=== PATIENT | female | born 1965 | race Caucasian/White ===

== ENCOUNTER 2017-04-17 17:05 | Inpatient (IN) | payer BC ==
--- NOTE | 2017-04-17 18:16 | RAD ---
INDICATION: Weakness COMPARISON: Chest x-ray May 15, 2013 TECHNIQUE: PA and lateral dual-energy views were obtained. FINDINGS: Bones/Soft Tissues: There is a right-sided Fixbrf-h-Tfpe catheter. There is stable T11 compression deformity Cardiomediastinal: The cardiomediastinal silhouette is normal. Lungs: There is airspace disease in the right lung base consistent with infiltrate or atelectasis. Pleura: Small bilateral pleural effusions. Other: None IMPRESSION: INFILTRATE OR ATELECTASIS RIGHT LUNG BASE AND SMALL BILATERAL EFFUSIONS.
[2017-04-17 18:46] LABS: Hematocrit 37 % (35-47); Hemoglobin 11.9 g/dl (12.0-16.0); Mean Corpuscular HGB Conc 32 g/dl (31-36); Mean Corpuscular Hemoglobin 32 pg (27-31); Mean Corpuscular Volume 100 fL (80-97); Mean Platelet Volume 10 um3 (7.4-10.4); Red Cell Distribution Width 25 % (10.5-15); White Blood Count 10.8 10^3/ul (3.5-10.8)
[2017-04-17 18:57] LABS: Add Diff/Slide Review? Manual Diff Added; Comments Flag Yes
[2017-04-17 19:07] LABS: Troponin I 0.07 ng/mL (<0.04)
[2017-04-17 19:10] LABS: BUN/Creatinine Ratio 18.9 (8-20); C Reactive Protein 60.65 mg/L (< 5.00); EGFR African American 22.3 (>60); EGFR Non-African American 17.3 (>60); Globulin 2.8 g/dL (2-4); Magnesium 2.3 mg/dL (1.9-2.7); Potassium 4.5 mmol/L (3.5-5.0); Total Bilirubin 5.5 mg/dL (0.2-1.0); Total Protein 4.8 g/dL (6.4-8.9)
[2017-04-17 19:51] LABS: TSH (Thyroid Stimulating Horm) 0.87 mcIU/mL (0.34-5.60)
[2017-04-17 19:59] LABS: Neutrophil % 94 % (38-83); RBC Morphology Normal (Normal)
--- NOTE | 2017-04-17 20:38 | RAD ---
INDICATION: Anuric. Stage IV breast cancer COMPARISON: CT chest/abdomen/pelvis January 17, 2017 TECHNIQUE: Noncontrast axial source images were acquired from the level hemidiaphragms to the symphysis pubis. There are inherent limitations of the lack of oral and intravenous contrast. Lung bases: Patchy bibasilar airspace disease with moderate size bilateral pleural effusions representing new findings. There is left mastectomy. Liver: Liver metastasis better identified on recent contrast enhanced imaging. Lobular liver contour with heterogeneity suggesting hepatic parenchymal disease. Gallbladder: Cholelithiasis. Spleen: The spleen is normal in size. The noncontrast CT appearance is normal. Pancreas: Noncontrast imaging shows no pancreatic mass or ductal dilitation. Adrenal glands: No masses are identified. Kidneys/Bladder: Nonobstructive bilateral nephrolithiasis. No CT evidence of hydronephrosis. Noncontrast imaging shows no evidence of a renal mass. The bladder is unremarkable.. Adenopathy: No gross adenopathy. Limited evaluation without oral or intravenous contrast. Fluid collections: Moderate ascites representing a new finding. Vessels: The aorta and iliac vessels are normal in caliber. There are no significant atherosclerotic changes. The IVC appears normal Pelvic organs: The uterus and adnexa appear normal GI tract: Evaluation of the bowel is limited without oral contrast. The stomach, small bowel, and lower GI tract appear grossly normal. There are no obstructive findings. Soft tissues: Anasarca. Osseous structures: Fuse osseous metastasis as recently described. IMPRESSION: 1. New patchy bibasilar airspace disease and moderate-sized bilateral pleural effusions. 2. Lobular liver contours with hepatic metastasis. 3. Cholelithiasis 4. New ascites. 5. Anasarca 6. Diffuse osseous metastasis.
[2017-04-17] MEDS ORDERED: Acetaminophen TAB* 325 MG PO PRN (22:19)
[2017-04-17] MEDS ORDERED: LORazepam INJ* 2 MG/ML 1 ML VIAL IV PRN (22:20)
[2017-04-17] MEDS ORDERED: CMCS: Melatonin (NF) 3 MG TAB PO PRN (22:34)
[2017-04-17] MEDS ORDERED: Albumin Human 5%* 250 ML in PREMIX* 0 ML IV ONE (23:00)
[2017-04-17] MEDS ORDERED: Albumin Human 5%* 1,000 ML in PREMIX* 0 ML IV ONE ×4 (23:00)
[2017-04-17 23:11] LABS: Uric Acid 12.1 mg/dL (2.3-6.6)
--- NOTE | 2017-04-18 00:04 | HP ---
H&P (Free Text) History and Physical: PCP: Justice Buckner MD Date/Time of Evaluation: 04/17/2017 2130 CC: fatigue, decreased urination HPI: Mrs Pretty is a 52YO female HX inflammatory breast CA diagnosed in 2012 for which she reports being on 4th or 5th line therapy for widely metastatic lesions to the liver, bones, & brain. 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 Starting ~3 weeks ago she began having progressive generalized weakness and fatigue associated with new onset of generalized swelling. This progressed to include decreasing urination over the past week. She relates the last time she urinated was this morning, but only "about a tablespoon". She denies SOB, chest pain, F/C, cough, congestion, changes in bowel, B/U/F of urine, flank or abdominal pain, or other issues. She reports gaining ~25# over the last 3 weeks despite having decreased PO intake. She feels she has been drinking adequate fluids. She is not currently on cytotoxic chemotherapy, rather the growth inhibitors letrozole & ribociclib. Overall her picture appears to be that of hepato-renal syndrome. It is most likely the tumor burden in the liver has caused its decompensation with resulting decreased synthetic ability, hypoalbuminemia, decreased intravascular oncotic pressure leading to anasarca, intravascular volume depletion and 2nd renal hypoperfusion and failure. Kale Méndez MD nephrology was consulted by Kale Lui MD ED and will follow. I discussed the case with Clarissa Lipscomb MD intesivist who agreed with the plan of action outlined below. All agree that prognosis is very poor over the short term. PMedHx inflammatory breast CA stg 4 as above currently on ribociclib & letrozole DM2 HTN HLD MTHFR mutation positive, hypercoagulable legally blind OU Ambulatory Orders metFORMIN* [Glucophage 500 MG TAB *] 500 mg PO BID 07/19/14 Calcium Carbonate TAB* 500 mg PO DAILY 03/01/16 Capecitabine (NF) [Xeloda (NF)] 1,500 mg PO TID 03/01/16 Cholecalciferol TAB* [Vitamin D TAB*] 1,000 unit PO DAILY 03/01/16 Fluconazole 100 MG TAB* [Diflucan TAB*] 150 mg PO DAILY 03/01/16 Metoprolol Tartrate TAB* [Lopressor TAB*] 12.5 mg PO BID 03/01/16 Pyridoxine HCl [Vitamin B-6] 100 mg PO 03/01/16 Pravastatin Sodium [Pravachol] 20 mg PO DAILY 05/26/16 Allergies Penicillins [PCN] Adverse Reaction (Severe, Verified 01/17/17 11:59) Rash PSurgHx L mastectomy appendectomy SocHx: no tobacco, alcohol, or recreational drugs; lives with her ; 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 ROS: as above, otherwise reviewed and all were negative Constitutional: NAD, normally developed, anasarcous, chronically ill appearing white female vitals: Vital Signs Temp 37.1 C 04/17/17 23:19 Pulse 98 04/17/17 23:00 Resp 16 04/17/17 18:09 BP 95/60 04/17/17 23:00 Pulse Ox 96 04/17/17 23:00 Intake & Output 04/17/17 04/17/17 04/18/17 11:59 23:59 11:59 Weight 78.018 kg HEENM: atraumatic; sclera/conjunctiva: non-icteric/clear; hearing: clinically intact; oropharynx: clear, mucosa moist Neck: soft tissue: no nuchal rigidity; thyroid: normal Pulmonary: clear to auscultation bilaterally, good to fair aeration, no accessory muscle use CV: RR/RR, normal S1S2, no carotid bruit, no jugular venous distention, 2+ B DP/ PT, no edema Abdominal: soft,mildly distended with fluid thrill, non-tender, no rebound/ guarding/rigidity, normoactive bowel sounds, no hepatosplenomegaly or masses, no costovertebral angle tenderness Musculoskeletal: general: grossly intact; gait: too weak to ambulate Integumental: pale, L mastectomy; otherwise normal appearance and texture of exposed skin Psychiatric orientation: AA&O to PPS affect: calm mood: pleasant eye contact: good content: reliable memory: intact responses: timely insight: fair to good Testing: Lab Results 04/17/17 04/17/17 04/17/17 Range/Units 18:35 18:35 18:35 WBC 10.8 (3.5-10.8) 10^3/ul RBC 3.70 L (4.0-5.4) 10^6/ul Hgb 11.9 L (12.0-16.0) g/dl Hct 37 (35-47) % MCV 100 H (80-97) fL MCH 32 H (27-31) pg MCHC 32 (31-36) g/dl RDW 25 H (10.5-15) % Plt Count 228 (150-450) 10^3/ul MPV 10 (7.4-10.4) um3 Absolute Neuts (auto) 10.1 H (1.5-7.7) 10^3/ul Absolute Lymphs (auto) 0.3 L (1.0-4.8) 10^3/ul Absolute Monos (auto) 0.3 (0-0.8) 10^3/ul Absolute Eos (auto) 0 (0-0.6) 10^3/ul Absolute Basos (auto) 0 (0-0.2) 10^3/ul Absolute Nucleated RBC 0 10^3/ul Neutrophils % 94 H (38-83) % Lymphocytes % 3 L (25-47) % Monocytes % 3 (0-13) % Normal RBC Morphology Normal (Normal) Sodium 130 L (133-145) mmol/L Potassium 4.5 (3.5-5.0) mmol/L Chloride 92 L (101-111) mmol/L Carbon Dioxide 19 L (22-32) mmol/L Anion Gap 19 H (2-11) mmol/L BUN 54 H (6-24) mg/dL Creatinine 2.86 H (0.51-0.95) mg/dL Est GFR ( Amer) 22.3 (>60) Est GFR (Non-Af Amer) 17.3 (>60) BUN/Creatinine Ratio 18.9 (8-20) Glucose 142 H (70-100) mg/dL Lactic Acid 10.2 H* (0.5-2.0) mmol/L Uric Acid 12.1 H (2.3-6.6) mg/dL Calcium 7.0 L (8.6-10.3) mg/dL Ionized Calcium (4.65-5.28) mg/dL Magnesium 2.3 (1.9-2.7) mg/dL Total Bilirubin 5.50 H (0.2-1.0) mg/dL AST 215 H (13-39) U/L ALT 64 H (7-52) U/L Alkaline Phosphatase 1107 H (34-104) U/L Lactate Dehydrogenase 389 H (140-271) U/L Total Creatine Kinase 627 H (10-223) U/L Troponin I 0.07 H* (<0.04) ng/mL C-Reactive Protein 60.65 H (< 5.00) mg/L B-Natriuretic Peptide ( - 100) pg/mL Total Protein 4.8 L (6.4-8.9) g/dL Albumin 2.0 L (3.2-5.2) g/dL Globulin 2.8 (2-4) g/dL Albumin/Globulin Ratio 0.7 L (1-3) TSH 0.87 (0.34-5.60) mcIU/mL 04/17/17 04/17/17 Range/Units 18:35 21:30 WBC (3.5-10.8) 10^3/ul RBC (4.0-5.4) 10^6/ul Hgb (12.0-16.0) g/dl Hct (35-47) % MCV (80-97) fL MCH (27-31) pg MCHC (31-36) g/dl RDW (10.5-15) % Plt Count (150-450) 10^3/ul MPV (7.4-10.4) um3 Absolute Neuts (auto) (1.5-7.7) 10^3/ul Absolute Lymphs (auto) (1.0-4.8) 10^3/ul Absolute Monos (auto) (0-0.8) 10^3/ul Absolute Eos (auto) (0-0.6) 10^3/ul Absolute Basos (auto) (0-0.2) 10^3/ul Absolute Nucleated RBC 10^3/ul Neutrophils % (38-83) % Lymphocytes % (25-47) % Monocytes % (0-13) % Normal RBC Morphology (Normal) Sodium (133-145) mmol/L Potassium (3.5-5.0) mmol/L Chloride (101-111) mmol/L Carbon Dioxide (22-32) mmol/L Anion Gap (2-11) mmol/L BUN (6-24) mg/dL Creatinine (0.51-0.95) mg/dL Est GFR ( Amer) (>60) Est GFR (Non-Af Amer) (>60) BUN/Creatinine Ratio (8-20) Glucose (70-100) mg/dL Lactic Acid (0.5-2.0) mmol/L Uric Acid (2.3-6.6) mg/dL Calcium (8.6-10.3) mg/dL Ionized Calcium 3.42 L (4.65-5.28) mg/dL Magnesium (1.9-2.7) mg/dL Total Bilirubin (0.2-1.0) mg/dL AST (13-39) U/L ALT (7-52) U/L Alkaline Phosphatase (34-104) U/L Lactate Dehydrogenase (140-271) U/L Total Creatine Kinase (10-223) U/L Troponin I (<0.04) ng/mL C-Reactive Protein (< 5.00) mg/L B-Natriuretic Peptide 119 H ( - 100) pg/mL Total Protein (6.4-8.9) g/dL Albumin (3.2-5.2) g/dL Globulin (2-4) g/dL Albumin/Globulin Ratio (1-3) TSH (0.34-5.60) mcIU/mL ECG, personally reviewed: NSR rate 94, no ischemia CXR, personally reviewed: IMPRESSION: INFILTRATE OR ATELECTASIS RIGHT LUNG BASE AND SMALL BILATERAL EFFUSIONS. CT chest/abd/pel WO, personally reviewed: IMPRESSION: 1. New patchy bibasilar airspace disease and moderate-sized bilateral pleural effusions. 2. Lobular liver contours with hepatic metastasis. 3. Cholelithiasis 4. New ascites. 5. Anasarca 6. Diffuse osseous metastasis. Impression: 52F HX stg 4 inflammatory breast CA widely metastatic to liver, bone , & brain presents with 3 weeks progressive generalized weakness, generalized swelling, and acute oliguric (nearly anuric) renal failure concerning for new onset hepato-renal syndrome, less likely tumor lysis syndrome DIAGNOSIS & PLAN Primary hepato-renal syndrome : 1L 5% albumin colloid attempting to shift oncotic pressure favoring intravascular volume : trend renal & hepatic function : consider furosemide infusion in AM, if no improvement in urine output : check INR : Kale Méndez MD nephrology consulted by Kale Lui MD ED; will follow : case discussed with Clarissa Lipscomb MD environmental engineering intern; will follow : Patient & family informed of very poor short-term prognosis. : supportive care Secondary DM2 : insulin carb ratio diet : basal/bolus/correctional insulin : check A1c HTN : review medications once reconciled HLD : review medications once reconciled MTHFR mutation positive, hypercoagulable : heparin SQ & SCDs for DVTp legally blind OU : no acute issues Admission Rational: inpatient ICU for acute hepato-renal syndrome in patient at high risk of mortality; inappropriate for outpatient setting DVTp: heparin SQ & SCDs Code Status: DNI, MOLST filled out HCP: , Lucila
[2017-04-18 01:29] LABS: Phosphorus 5.2 mg/dL (2.5-5.0)
[2017-04-18] MEDS: Omeprazole CAP* 20 MG PO SCH (05:58)
[2017-04-18] MEDS: Heparin VIAL(*) 5000 UNITS/ML VIAL (FIVE THOUSAND) SUBCUT SCH ×3 (05:58→20:55)
[2017-04-18 06:07] LABS: Hematocrit 28 % (35-47); Hemoglobin 9.3 g/dl (12.0-16.0); Mean Corpuscular HGB Conc 33 g/dl (31-36); Mean Corpuscular Hemoglobin 33 pg (27-31); Mean Corpuscular Volume 99 fL (80-97); Mean Platelet Volume 9 um3 (7.4-10.4); Red Blood Count 2.83 10^6/ul (4.0-5.4); White Blood Count 7.3 10^3/ul (3.5-10.8)
[2017-04-18 06:09] LABS: Comments Flag Yes
[2017-04-18 06:11] LABS: Red Cell Distribution Width 25 % (10.5-15)
[2017-04-18 06:24] LABS: Albumin 2.8 g/dL (3.2-5.2); BUN/Creatinine Ratio 18.5 (8-20); Calcium 6.7 mg/dL (8.6-10.3); Direct Bilirubin 3.3 mg/dL (0.03-0.18); EGFR African American 21.3 (>60); EGFR Non-African American 16.6 (>60); Globulin 1.8 g/dL (2-4); Indirect Bilirubin 1.6 mg/dL (0.3-1.0); Potassium 4.4 mmol/L (3.5-5.0); Total Bilirubin 4.9 mg/dL (0.2-1.0); Total Protein 4.6 g/dL (6.4-8.9)
[2017-04-18 06:52] LABS: Troponin I 0.08 ng/mL (<0.04)
[2017-04-18] MEDS: Insulin LISPRO* 1 UNITS UNIT SUBCUT SCH ×3 (07:55→08:58)
[2017-04-18 08:36] LABS: Urine Bacteria Absent (Absent); Urine Bilirubin Negative (Negative); Urine Glucose Negative (Negative); Urine Nitrite Negative (Negative)
[2017-04-18] MEDS: Docusate CAP* 100 MG PO SCH ×2 (09:03→21:21)
[2017-04-18 10:12] LABS: Phosphorus 4.4 mg/dL (2.5-5.0); Uric Acid 11.9 mg/dL (2.3-6.6)
[2017-04-18] MEDS: HYDROmorphone* 1 MG/ML 1 ML SYR IV PRN (10:12)
[2017-04-18] MEDS ORDERED: Rasburicase 1.5 MG VIAL(NF) IVPB ONE (11:00)
[2017-04-18] MEDS ORDERED: RASBURICASE IVPB ONE (12:00)
[2017-04-18] MEDS ORDERED: NS 0.9% IVPB ONE (12:00)
[2017-04-18] MEDS: Albumin Human 25%* 100 ML in PREMIX* 0 ML IV SCH ×3 (12:23→23:53)
--- NOTE | 2017-04-18 12:23 | PN ---
Progress Note - Progress Note Note: CRITICAL CARE MEDICINE Date: 04/18/17 Time: 1015 SUBJECTIVE: Patient seen and examined. PHYSICAL EXAM: fatigue, but not distressed Vital Signs: Reviewed. Neurologic: awake, communicating HEENT: pupils equal. Sclera anicteric. Trachea midline. Cardiovascular: S1 S2 Respiratory: dec at bases. Abdomen: Soft, discomfort more R sided, +fluid, anasarca Extremities: Warm. 3+ edema LABS: Reviewed. IMAGING: Reviewed. MEDICATIONS: Reviewed. ASSESSMENT: 52 F MSOF Acute oliguric renal failure - HRS vs TLS Mild metabolic encephalopathy, +/- hepatic encephalopathy Widely metastatic stage IV breast CA Lactic acidosis sec to subacute liver failure Hyponatremia Malnutrition mod degree Anasacra PLAN: Neurologic: communicating. we discussed potentials and mechanisms for worsening encephalopathy. check ammonia level. pain control prn Cardiovascular: Perfusing status seems ok. Intravscular vol holding mostly but interstitial fluid overloaded without mobilization. Colloid loading still today and consider high dose lasix and gtt soon. We discussed and I advocated for early use of vasopressors if indicated, which they are not presently. Respiratory: RA. seems to be adequately compensated for now. We discussed mechanisms leading towards resp failure. Gastrointestinal: poor appetite but take in what she can. invasive hepatic lesions. at risk for dic. Renal/Metabolic: as explained to pt, we will remain aggressive with fluid balance and utilize rasburicase in hopes this is just a large tumor abundance causing tls and acute tubular insult with potential reversibility. Explained if more HRS, then less likely to be reversibility. Infectious Disease: no infective burden seen, but at risk. Hematology: oncology followed in [facility] and had refer to [facility] but to no avail and headed towards palliative tract. rasburicase to be given and then allopurinal f/u and check Uric addison. Endocrine: no steroid indication at this time. hold lantus given renal dysfx Musculoskeletal: rest today; avoid skin breakdown Psych/Social: at bedside with pt and they expressed understanding. Offered palliative support and they will consider Supportive and preventative care as ordered. SUP: po VTE prophylaxis: heparin Phelan catheter given critical illness, monitoring needs for accurate assessment of JEANE and KDIGO criteria for critically ill patients and to avoid potential harms of urinary retention, skin breakdown/ulcers. Disposition: ICU today Code Status: Full Critical Care Time: 38min Sherin Lipscomb DO
[2017-04-18] MEDS ORDERED: Magic M W2 Ben/Maal/Nyst/Lido* 240 ML MOUTHWASH (alt formulation) SWISH SWAL PRN (13:48)
[2017-04-18] MEDS ORDERED: oxyCODONE TAB* 5 MG TAB PO PRN (13:50)
[2017-04-18] MEDS: NS 0.9% 1000 ML* 2,000 ML IV ONE ×2 (14:35→20:27)
[2017-04-18] MEDS ORDERED: Insulin GLARGINE(*) 1 UNITS UNIT SUBCUT SCH (21:00)
[2017-04-19] MEDS: Omeprazole CAP* 20 MG PO SCH ×2 (06:23→17:09)
[2017-04-19] MEDS: Heparin VIAL(*) 5000 UNITS/ML VIAL (FIVE THOUSAND) SUBCUT SCH ×3 (06:23→21:19)
[2017-04-19] MEDS: Albumin Human 25%* 100 ML in PREMIX* 0 ML IV SCH (06:24)
[2017-04-19 06:54] LABS: Hematocrit 25 % (35-47); Hemoglobin 8.3 g/dl (12.0-16.0); Mean Corpuscular HGB Conc 33 g/dl (31-36); Mean Corpuscular Hemoglobin 32 pg (27-31); Mean Corpuscular Volume 99 fL (80-97); Mean Platelet Volume 9 um3 (7.4-10.4); Red Blood Count 2.56 10^6/ul (4.0-5.4); Red Cell Distribution Width 25 % (10.5-15); White Blood Count 5.2 10^3/ul (3.5-10.8)
[2017-04-19 06:55] LABS: Comments Flag Yes
[2017-04-19 07:06] LABS: ALT 34 U/L (7-52); AST 136 U/L (13-39); Albumin 3.1 g/dL (3.2-5.2); Alkaline Phosphatase 570 U/L (34-104); Anion Gap 10 mmol/L (2-11); Blood Urea Nitrogen 60 mg/dL (6-24); CO2 Carbon Dioxide 25 mmol/L (22-32); Calcium 6.7 mg/dL (8.6-10.3); Chloride 97 mmol/L (101-111); EGFR African American 19.9 (>60); EGFR Non-African American 15.5 (>60); Globulin 1.6 g/dL (2-4); Glucose 77 mg/dL (70-100); Magnesium 2.2 mg/dL (1.9-2.7); Phosphorus 3.5 mg/dL (2.5-5.0); Sodium 132 mmol/L (133-145); Total Protein 4.7 g/dL (6.4-8.9); Uric Acid < 1.5 mg/dL (2.3-6.6)
[2017-04-19] MEDS: Docusate CAP* 100 MG PO SCH ×2 (08:28→21:19)
[2017-04-19] MEDS: HYDROmorphone* 1 MG/ML 1 ML SYR IV PRN (08:47)
--- NOTE | 2017-04-19 09:27 | ED ---
Jose L Escoto Alok, scribed for iMhai Lui MD on 04/17/17 at 1806 . Complex/Multi-Sys Presentation - HPI Summary HPI Summary: 52F presents to the ED for increased fatigue. Pt states that her appetite has been low lately, and today had several episodes of falling asleep while trying to eat. PMHx includes breast CA that has spread to bone, liver, and brain, as well as DM. Pt notes recent change in chemotherapy related medication to Kisqali as well as the introduction of a new water pill for the past few days. Pt states she was previously on Lasix two weeks ago for one week until discontinuing. Pt states her last radiation treatment was 6 months ago. Pt takes metformin for DM. Pt also c/o a rhvc-ortthh-tguy cough. Pt states she has been urinating little. Pt states her BM have been normal. Pt also notes pedal edema bilaterally and progressively worsening for the past 2-3 weeks. - History Of Current Complaint Time Seen by Provider: 04/17/17 17:30 Hx Obtained From: Patient Onset/Duration: Gradual Onset, Lasting Days, Still Present Timing: Constant Severity Currently: Moderate Severity Initially: Moderate Associated Signs And Symptoms: Positive: Other - Fatigue, low urination, pedal edema - Allergies/Home Medications Allergies/Adverse Reactions: Allergies Allergy/AdvReac Type Severity Reaction Status Date / Time Penicillins [PCN] AdvReac Severe Rash Verified 01/17/17 11:59 PMH/Surg Hx/FS Hx/Imm Hx Endocrine/Hematology History: Reports: Hx Diabetes - Metformin - type 2 Denies: Hx Systemic Lupus Erythematosus Cardiovascular History: Denies: Hx Hypertension, Hx Pacemaker/ICD Respiratory History: Denies: Hx Asthma History: Denies: Hx Dialysis, Hx Renal Disease Musculoskeletal History: Denies: Hx Rheumatoid Arthritis Sensory History: Denies: Hx Hearing Aid Neurological History: Comment Only: Other Neuro Impairments/Disorders - BREAST CANCER DX LAST YR Psychiatric History: Denies: Hx Panic Disorder - Cancer History Cancer Type, Location and Year: BREAST/BRAIN Hx Chemotherapy: Yes - PRESENT TIME Hx Radiation Therapy: Yes - 05/05/15 - Surgical History Surgery Procedure, Year, and Place: Left radical mastectomy August2013. appendectomy 1984,[facility] knife 07/04[place] Infectious Disease History: Denies: Traveled Outside the [place] in Last 30 Days - Family History Known Family History: Negative: Cardiac Disease, Hypertension, Diabetes - Social History Occupation: Employed Full-time Lives: With Family Alcohol Use: Rare Substance Use Type: Reports: None Smoking Status (MU): Never Smoked Tobacco Review of Systems Positive: Fatigue. Negative: Fever Positive: Cough Positive: other - low urination Positive: Edema All Other Systems Reviewed And Are Negative: Yes Physical Exam Triage Information Reviewed: Yes Vital Signs On Initial Exam: Initial Vital Signs Temp 99.0 F 04/17/17 18:09 Pulse 98 04/17/17 18:09 Resp 16 04/17/17 18:09 BP 92/51 04/17/17 18:09 Pulse Ox 96 04/17/17 18:09 Vital Signs Reviewed: Yes Appearance: Positive: Well-Appearing, No Pain Distress Skin: Positive: Other - slight icterus Head/Face: Positive: Normal Head/Face Inspection Eyes: Positive: Other: - pupils 1-2 mm ENT: Positive: Normal ENT inspection Neck: Positive: Supple, Nontender Respiratory/Lung Sounds: Positive: Clear to Auscultation, Breath Sounds Present Cardiovascular: Positive: RRR Abdomen Description: Positive: Nontender, Soft Bowel Sounds: Positive: Present Musculoskeletal: Positive: Other - 3+ pitting edema both legs Neurological: Positive: Normal Psychiatric: Positive: Normal, Affect/Mood Appropriate Diagnostics - Vital Signs Vital Signs Temp Pulse Resp BP Pulse Ox 04/17/17 21:30 96 97/63 96 04/17/17 21:00 95 95/53 95 04/17/17 20:30 97 93/59 96 04/17/17 20:00 97 96/51 96 04/17/17 19:30 95 95/57 95 04/17/17 19:00 97 89/59 99 04/17/17 18:15 97 96 04/17/17 18:13 92/51 04/17/17 18:09 99.0 F 98 16 92/51 96 - Laboratory Lab Results: Lab Results 04/17/17 04/17/17 04/17/17 Range/Units 18:35 18:35 18:35 WBC 10.8 (3.5-10.8) 10^3/ul RBC 3.70 L (4.0-5.4) 10^6/ul Hgb 11.9 L (12.0-16.0) g/dl Hct 37 (35-47) % MCV 100 H (80-97) fL MCH 32 H (27-31) pg MCHC 32 (31-36) g/dl RDW 25 H (10.5-15) % Plt Count 228 (150-450) 10^3/ul MPV 10 (7.4-10.4) um3 Absolute Neuts (auto) 10.1 H (1.5-7.7) 10^3/ul Absolute Lymphs (auto) 0.3 L (1.0-4.8) 10^3/ul Absolute Monos (auto) 0.3 (0-0.8) 10^3/ul Absolute Eos (auto) 0 (0-0.6) 10^3/ul Absolute Basos (auto) 0 (0-0.2) 10^3/ul Absolute Nucleated RBC 0 10^3/ul Neutrophils % 94 H (38-83) % Lymphocytes % 3 L (25-47) % Monocytes % 3 (0-13) % Normal RBC Morphology Normal (Normal) INR (Anticoag Therapy) (0.89-1.11) Sodium 130 L (133-145) mmol/L Potassium 4.5 (3.5-5.0) mmol/L Chloride 92 L (101-111) mmol/L Carbon Dioxide 19 L (22-32) mmol/L Anion Gap 19 H (2-11) mmol/L BUN 54 H (6-24) mg/dL Creatinine 2.86 H (0.51-0.95) mg/dL Est GFR ( Amer) 22.3 (>60) Est GFR (Non-Af Amer) 17.3 (>60) BUN/Creatinine Ratio 18.9 (8-20) Glucose 142 H (70-100) mg/dL Hemoglobin A1c (Less than 6.0) % Lactic Acid 10.2 H* (0.5-2.0) mmol/L Uric Acid 12.1 H (2.3-6.6) mg/dL Calcium 7.0 L (8.6-10.3) mg/dL Ionized Calcium (4.65-5.28) mg/dL Phosphorus 5.2 H (2.5-5.0) mg/dL Magnesium 2.3 (1.9-2.7) mg/dL Total Bilirubin 5.50 H (0.2-1.0) mg/dL AST 215 H (13-39) U/L ALT 64 H (7-52) U/L Alkaline Phosphatase 1107 H (34-104) U/L Lactate Dehydrogenase 389 H (140-271) U/L Total Creatine Kinase 627 H (10-223) U/L Troponin I 0.07 H* (<0.04) ng/mL C-Reactive Protein 60.65 H (< 5.00) mg/L B-Natriuretic Peptide ( - 100) pg/mL Total Protein 4.8 L (6.4-8.9) g/dL Albumin 2.0 L (3.2-5.2) g/dL Globulin 2.8 (2-4) g/dL Albumin/Globulin Ratio 0.7 L (1-3) TSH 0.87 (0.34-5.60) mcIU/mL 04/17/17 04/17/17 04/17/17 Range/Units 18:35 18:35 18:35 WBC (3.5-10.8) 10^3/ul RBC (4.0-5.4) 10^6/ul Hgb (12.0-16.0) g/dl Hct (35-47) % MCV (80-97) fL MCH (27-31) pg MCHC (31-36) g/dl RDW (10.5-15) % Plt Count (150-450) 10^3/ul MPV (7.4-10.4) um3 Absolute Neuts (auto) (1.5-7.7) 10^3/ul Absolute Lymphs (auto) (1.0-4.8) 10^3/ul Absolute Monos (auto) (0-0.8) 10^3/ul Absolute Eos (auto) (0-0.6) 10^3/ul Absolute Basos (auto) (0-0.2) 10^3/ul Absolute Nucleated RBC 10^3/ul Neutrophils % (38-83) % Lymphocytes % (25-47) % Monocytes % (0-13) % Normal RBC Morphology (Normal) INR (Anticoag Therapy) 1.37 H (0.89-1.11) Sodium (133-145) mmol/L Potassium (3.5-5.0) mmol/L Chloride (101-111) mmol/L Carbon Dioxide (22-32) mmol/L Anion Gap (2-11) mmol/L BUN (6-24) mg/dL Creatinine (0.51-0.95) mg/dL Est GFR ( Amer) (>60) Est GFR (Non-Af Amer) (>60) BUN/Creatinine Ratio (8-20) Glucose (70-100) mg/dL Hemoglobin A1c 6.3 H (Less than 6.0) % Lactic Acid (0.5-2.0) mmol/L Uric Acid (2.3-6.6) mg/dL Calcium (8.6-10.3) mg/dL Ionized Calcium (4.65-5.28) mg/dL Phosphorus (2.5-5.0) mg/dL Magnesium (1.9-2.7) mg/dL Total Bilirubin (0.2-1.0) mg/dL AST (13-39) U/L ALT (7-52) U/L Alkaline Phosphatase (34-104) U/L Lactate Dehydrogenase (140-271) U/L Total Creatine Kinase (10-223) U/L Troponin I (<0.04) ng/mL C-Reactive Protein (< 5.00) mg/L B-Natriuretic Peptide 119 H ( - 100) pg/mL Total Protein (6.4-8.9) g/dL Albumin (3.2-5.2) g/dL Globulin (2-4) g/dL Albumin/Globulin Ratio (1-3) TSH (0.34-5.60) mcIU/mL 04/17/ Range/Units 21:30 WBC (3.5-10.8) 10^3/ul RBC (4.0-5.4) 10^6/ul Hgb (12.0-16.0) g/dl Hct (35-47) % MCV (80-97) fL MCH (27-31) pg MCHC (31-36) g/dl RDW (10.5-15) % Plt Count (150-450) 10^3/ul MPV (7.4-10.4) um3 Absolute Neuts (auto) (1.5-7.7) 10^3/ul Absolute Lymphs (auto) (1.0-4.8) 10^3/ul Absolute Monos (auto) (0-0.8) 10^3/ul Absolute Eos (auto) (0-0.6) 10^3/ul Absolute Basos (auto) (0-0.2) 10^3/ul Absolute Nucleated RBC 10^3/ul Neutrophils % (38-83) % Lymphocytes % (25-47) % Monocytes % (0-13) % Normal RBC Morphology (Normal) INR (Anticoag Therapy) (0.89-1.11) Sodium (133-145) mmol/L Potassium (3.5-5.0) mmol/L Chloride (101-111) mmol/L Carbon Dioxide (22-32) mmol/L Anion Gap (2-11) mmol/L BUN (6-24) mg/dL Creatinine (0.51-0.95) mg/dL Est GFR ( Amer) (>60) Est GFR (Non-Af Amer) (>60) BUN/Creatinine Ratio (8-20) Glucose (70-100) mg/dL Hemoglobin A1c (Less than 6.0) % Lactic Acid (0.5-2.0) mmol/L Uric Acid (2.3-6.6) mg/dL Calcium (8.6-10.3) mg/dL Ionized Calcium 3.42 L (4.65-5.28) mg/dL Phosphorus (2.5-5.0) mg/dL Magnesium (1.9-2.7) mg/dL Total Bilirubin (0.2-1.0) mg/dL AST (13-39) U/L ALT (7-52) U/L Alkaline Phosphatase (34-104) U/L Lactate Dehydrogenase (140-271) U/L Total Creatine Kinase (10-223) U/L Troponin I (<0.04) ng/mL C-Reactive Protein (< 5.00) mg/L B-Natriuretic Peptide ( - 100) pg/mL Total Protein (6.4-8.9) g/dL Albumin (3.2-5.2) g/dL Globulin (2-4) g/dL Albumin/Globulin Ratio (1-3) TSH (0.34-5.60) mcIU/mL Result Diagrams: 04/19/17 06:14 04/19/17 06:14 Lab Statement: Any lab studies that have been ordered have been reviewed, and results considered in the medical decision making process. - Radiology CXR Xray Interpretation: Positive (See Comments) - IMPRESSION: INFILTRATE OR ATELECTASIS RIGHT LUNG BASE AND SMALL BILATERAL EFFUSIONS. Radiology Interpretation Completed By: Radiologist - CT abd/pel CT CT Interpretation: Positive (See Comments) - IMPRESSION: 1. New patchy bibasilar airspace disease and moderate-sized bilateral pleural effusions. 2. Lobular liver contours with hepatic metastasis. 3. Cholelithiasis 4. New ascites. 5. Anasarca 6. Diffuse osseous metastasis. CT Interpretation Completed By: Radiologist - EKG 2048 Cardiac Rate: NL - 94 bpm EKG Rhythm: Sinus Rhythm Complex Multi-Symp Course/Dx Course Of Treatment: Ms. Pretty arrived very weak and very ill. She is developing renal failure and has a marked lactic acid elevation. Dr. Méndez was contacted and agreed to consult on her and Dr. Castillo will admit her. - Diagnoses Provider Diagnoses: Metabolic acidosis, Acute renal failure (ARF) - Physician Notifications Discussed Care Of Patient With: Garret Castillo - Will admit pt Time Discussed With Above Provider: 21:33 - Critical Care Time Critical Care Time: 30-74 min Discharge - Discharge Plan Condition: Stable Disposition: ADMITTED TO [facility] documentation as recorded by the Jose L bhatti Alok accurately reflects the service I personally performed and the decisions made by me, Mihai Lui MD.
[2017-04-19] MEDS: Ondansetron INJ* 2 MG/ML VIAL IV PRN (09:53)
[2017-04-19] MEDS ORDERED: Furosemide IV* 10 MG/ML 10 ML VIAL (100 MG) IV ONE (10:17)
[2017-04-19] MEDS: CMC: Midodrine (NF) 5 MG TAB PO SCH ×3 (10:33→21:23)
--- NOTE | 2017-04-19 12:12 | PN ---
Progress Note - Progress Note Note: CRITICAL CARE MEDICINE Date: 04/19/17 Time: 1130 SUBJECTIVE: Patient seen and examined. PHYSICAL EXAM: fatigue Vital Signs: Reviewed. Neurologic: awake, communicating HEENT: pupils equal. Sclera icteric. Trachea midline. Cardiovascular: S1 S2 Respiratory: dec at bases. Abdomen: Soft, discomfort similar, +fluid, anasarca Extremities: Cooler. 3+ edema LABS: Reviewed. IMAGING: Reviewed. MEDICATIONS: Reviewed. ASSESSMENT: 52 F MSOF Acute oliguric renal failure - HRS vs TLS Mild metabolic encephalopathy, + hepatic encephalopathy Widely metastatic stage IV breast CA Lactic acidosis sec to subacute liver failure Hyponatremia Malnutrition mod degree Anasacra PLAN: Neurologic: communicating. encephalopathy. check ammonia level. pain control prn Cardiovascular: Perfusing ok but add midodrine to maintain. Don't want to get into using levo if we can avoid. Intravscular vol holding and interstitial fluid overloaded without mobilization. Can try lasix bolus and gtt today. If works, can continue if not, then hold back. Respiratory: RA. follow status. Gastrointestinal: poor appetite will remain. add lactulose. gerd suppression. Renal/Metabolic: Uric improved. following renal fx that has not yet. Appreciate nephro eval. Hopefully for lasix benenfit vs watchful waiting. Infectious Disease: no infective burden currently. Hematology: may start allopurinal if uric acid climbs. Endocrine: no steroid indication at this time but may need a try. no lantus. Musculoskeletal: rest but avoid further deconditioning Psych/Social: remain concerned. adjust pain regimen for better control. Palliative consult when available. Supportive and preventative care as ordered. SUP: po VTE prophylaxis: heparin Phelan catheter given critical illness, monitoring needs for accurate assessment of JEANE and KDIGO criteria for critically ill patients and to avoid potential harms of urinary retention, skin breakdown/ulcers. Disposition: ICU today Code Status: Full, with dni presently Critical Care Time: 30min Sherin Lipscomb DO
[2017-04-19] MEDS: oxyCODONE SR TAB(*) 10 MG TAB.SR PO SCH ×2 (13:44→21:19)
[2017-04-19] MEDS ORDERED: Octreotide Acetate* 100 MCG/ML 1 ML VIAL SUBCUT SCH (14:00)
[2017-04-19 14:06] LABS: Renal Sodium Excretion 0.35 %; Urine Random Sodium < 18 mmol/L
[2017-04-19] MEDS: OCTREOTIDE 100 MCG/ML SUBCUT SCH ×2 (15:36→21:23)
--- NOTE | 2017-04-20 00:30 | CONS ---
NEPHROLOGY CONSULTATION: DATE OF CONSULT/DICTATION: 04/19/17 HISTORY OF PRESENT ILLNESS: Ms. Pretty is a 52-year-old female with a history of inflammatory breast cancer. She has been undergoing multiple courses of chemotherapy and radiation to her head. She has widely metastatic disease to her liver, her brain, and her bones. She gained approximately 25 pounds over the 3 weeks prior to admission. She felt very dry and was not getting enough fluid. She also noticed some orthostatic dizziness. She developed some abdominal distention. She had significant dyspnea on exertion. She had no fever or chills. PAST MEDICAL HISTORY: Her previous medical history is significant for diabetes mellitus, type 2; hypertension; hyperlipidemia. PAST SURGICAL HISTORY: Previous surgical history is significant for left mastectomy and an appendectomy. MEDICATIONS: At the time of admission included: 1. Metformin 500 mg twice a day. 2. Calcium carbonate 500 mg daily. 3. Capecitabine 1500 mg 3 times a day. 4. Cholecalciferol 1000 units daily. 5. Fluconazole 100 mg daily. 6. Metoprolol 12.5 mg twice a day. 7. Pyridoxine 100 mg daily. 8. Pravastatin mg daily. ALLERGIES: She is allergic to PENICILLIN. FAMILY HISTORY: Significant for her mother had breast cancer, her father had a pulmonary embolus. SOCIAL HISTORY: She is and lives with her . 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 She does not use alcohol or tobacco. REVIEW OF SYSTEMS: Significant in that she lost vision as a result of radiation therapy. She has had some anorexia. PHYSICAL EXAM: She is an edematous white female, who appears comfortable at the present time. Her blood pressure is 102/58 with a pulse of 83, respirations are 18. She is normocephalic. She has alopecia. Her mucous membranes are moist. Her chest reveals decreased breath sounds to the bases. The heart revealed a regular rhythm without murmurs. The abdomen reveals some abdominal wall fingerprinting. Her liver is down approximately 4 cm in the mid clavicular line. There is a positive fluid wave. Lower extremities revealed 3+ edema diffusely. LABORATORY DATA: A review of her laboratory studies reveals a white count of 5.2 with a hemoglobin of 8.3. Sodium of 132, potassium 4.0, chloride 97, total CO2 25, BUN 60, creatinine 3.15 up from 2.86 on presentation. Her lactic acid is 2.4 down from 10.2 on presentation. Calcium is 6.7 with an albumin of 3.1. Her ammonia level is 91. Her bilirubin is 3.3. Urinalysis reveals a negative dipstick with 1+ wbc's, 2+ rbc's, and some hyaline casts. IMPRESSION: Acute renal failure. This is likely to be either acute tubular necrosis or hepatorenal syndrome. We should see urinary sodium and creatinine and fractional excretion of sodium. There certainly is a possibility she could have acute uric acid toxicity as her uric acid was markedly elevated at 12.1 on presentation. In addition, she had lactic acidosis which is likely due to the use of metformin at the time of developing her renal insufficiency. Certainly, she could have significant intrahepatic biliary obstruction secondary to wide- spread metastasis. In addition, there is a hepatotoxic effect to one of her chemotherapy agents that is ribociclib. At the present time, I agree with the use of the rasburicase, which has already occurred to take her uric acid down. However, the effect of uric acid may take some time to clear. I would be cautious with the use of diuretics. Although a brief course may not be a bad idea in order to try to expel any uric acid cast that may be causing an intrarenal obstructive event, I would allow her respiratory status to otherwise dictate the use of diuresis. If in fact she does have hepatorenal syndrome, the prognosis would be highly guarded. I have discussed the case at length with Dr. Lipscomb. [id number]/[facility] #: [id number] [facility] HOSPITALRobert
[2017-04-20] MEDS: Heparin VIAL(*) 5000 UNITS/ML VIAL (FIVE THOUSAND) SUBCUT SCH ×3 (04:55→21:31)
[2017-04-20 05:16] LABS: Hematocrit 28 % (35-47); Hemoglobin 9.2 g/dl (12.0-16.0); Mean Corpuscular HGB Conc 33 g/dl (31-36); Mean Corpuscular Hemoglobin 33 pg (27-31); Mean Corpuscular Volume 101 fL (80-97); Mean Platelet Volume 9 um3 (7.4-10.4); Red Blood Count 2.79 10^6/ul (4.0-5.4)
[2017-04-20 05:32] LABS: Albumin 3.2 g/dL (3.2-5.2); BUN/Creatinine Ratio 18.2 (8-20); Calcium 6.5 mg/dL (8.6-10.3); Comments Flag Yes; Direct Bilirubin 4.2 mg/dL (0.03-0.18); EGFR African American 18.6 (>60); EGFR Non-African American 14.4 (>60); Globulin 1.6 g/dL (2-4); Indirect Bilirubin 2.4 mg/dL (0.3-1.0); Magnesium 2.1 mg/dL (1.9-2.7); Potassium 3.9 mmol/L (3.5-5.0); Red Cell Distribution Width 25 % (10.5-15); Total Bilirubin 6.6 mg/dL (0.2-1.0); Total Protein 4.8 g/dL (6.4-8.9)
[2017-04-20] MEDS: Omeprazole CAP* 20 MG PO SCH ×2 (07:51→17:24)
[2017-04-20] MEDS: Ondansetron INJ* 2 MG/ML VIAL IV PRN (07:51)
[2017-04-20] MEDS: Docusate CAP* 100 MG PO SCH ×2 (08:34→21:01)
[2017-04-20] MEDS: OCTREOTIDE 100 MCG/ML SUBCUT SCH ×3 (09:17→21:39)
[2017-04-20] MEDS: oxyCODONE SR TAB(*) 10 MG TAB.SR PO SCH ×2 (10:00→21:30)
[2017-04-20] MEDS: CMC: Midodrine (NF) 5 MG TAB PO SCH (10:29)
[2017-04-20] MEDS: CMC:Midodrine (NF) 5 MG TAB PO SCH ×3 (10:45→21:41)
--- NOTE | 2017-04-20 10:47 | PN ---
Progress Note - Progress Note Note: CRITICAL CARE MEDICINE Date: 04/20/17 Time: 900 SUBJECTIVE: Patient seen and examined. PHYSICAL EXAM: looks a touch better Vital Signs: Reviewed. Neurologic: awake, communicating HEENT: pupils equal. Sclera icteric. Trachea midline. Cardiovascular: S1 S2 Respiratory: dec at bases but no rales. Abdomen: Soft, better from discomfort, +fluid, anasarca Extremities: warm. 3+ edema LABS: Reviewed. IMAGING: Reviewed. MEDICATIONS: Reviewed. ASSESSMENT: 52 F MSOF Acute oliguric renal failure - HRS vs TLS Mild metabolic encephalopathy, + hepatic encephalopathy Widely metastatic stage IV breast CA Lactic acidosis sec to subacute liver failure Hyponatremia Malnutrition mod degree Anasacra PLAN: Neurologic: communicating. encephalopathy seems a bit better, and only mild to start. pain control better. Cardiovascular: Perfusing ok and benefit from midodrine and try to maximize with inc dose to avoid trough in bp. Intravscular vol holding and interstitial fluid overloaded still but some real mobilization post lasix. continued gtt and f/u. Respiratory: RA. follow status but doing well there. Gastrointestinal: maybe a pinch better appetite. encourage. gerd suppression. Renal/Metabolic: renal fx holding and Uout up. lasix Infectious Disease: no infective burden. Hematology: start allopurinal for now. Endocrine: no steroid indication at this time but may need a try. no lantus. Musculoskeletal: rest but avoid further deconditioning Psych/Social: pain regimen better. Palliative consult Sunday likely. Supportive and preventative care as ordered. SUP: po VTE prophylaxis: heparin Phelan catheter given critical illness, monitoring needs for accurate assessment of JEANE and KDIGO criteria for critically ill patients and to avoid potential harms of urinary retention, skin breakdown/ulcers. Disposition: ICU Code Status: Full, with dni currently Critical Care Time: 30min Sherin Lipscomb DO
[2017-04-20] MEDS ORDERED: Phytonadione Oral Solution* 5 MG/25 ML UDC PO ONE (11:00)
[2017-04-21 05:58] LABS: Comments Flag Yes; Hematocrit 30 % (35-47); Hemoglobin 9.9 g/dl (12.0-16.0); Mean Corpuscular HGB Conc 33 g/dl (31-36); Mean Corpuscular Hemoglobin 34 pg (27-31); Mean Corpuscular Volume 101 fL (80-97); Mean Platelet Volume 9 um3 (7.4-10.4); Red Blood Count 2.95 10^6/ul (4.0-5.4); Red Cell Distribution Width 25 % (10.5-15); White Blood Count 4.6 10^3/ul (3.5-10.8)
[2017-04-21 06:09] LABS: ALT 34 U/L (7-52); AST 144 U/L (13-39); Albumin 2.9 g/dL (3.2-5.2); Alkaline Phosphatase 537 U/L (34-104); Anion Gap 12 mmol/L (2-11); Blood Urea Nitrogen 57 mg/dL (6-24); CO2 Carbon Dioxide 28 mmol/L (22-32); Calcium 6.5 mg/dL (8.6-10.3); Chloride 99 mmol/L (101-111); EGFR African American 19.8 (>60); EGFR Non-African American 15.4 (>60); Globulin 1.7 g/dL (2-4); Glucose 171 mg/dL (70-100); Indirect Bilirubin 2.7 mg/dL (0.3-1.0); Magnesium 1.8 mg/dL (1.9-2.7); Phosphorus 3.3 mg/dL (2.5-5.0); Potassium 3.2 mmol/L (3.5-5.0); Sodium 139 mmol/L (133-145); Total Protein 4.6 g/dL (6.4-8.9); Uric Acid < 1.5 mg/dL (2.3-6.6)
[2017-04-21] MEDS: Heparin VIAL(*) 5000 UNITS/ML VIAL (FIVE THOUSAND) SUBCUT SCH ×3 (06:45→21:50)
[2017-04-21] MEDS: OCTREOTIDE 100 MCG/ML SUBCUT SCH ×3 (09:30→21:50)
[2017-04-21] MEDS: CMC:Midodrine (NF) 5 MG TAB PO SCH ×3 (09:30→21:49)
[2017-04-21] MEDS: Omeprazole CAP* 20 MG PO SCH ×2 (09:30→16:32)
[2017-04-21] MEDS: Ondansetron INJ* 2 MG/ML VIAL IV PRN ×3 (09:30→17:44)
[2017-04-21] MEDS: oxyCODONE SR TAB(*) 10 MG TAB.SR PO SCH ×2 (09:30→21:50)
[2017-04-21] MEDS ORDERED: Magnesium Sulfate 2 GM IV* 2 GM/50 ML BAG IVPB ONE (09:53)
[2017-04-21] MEDS ORDERED: Dextrose 50% Syringe 50 ML* 25 GM/50 ML SYRINGE IV PUSH PRN (10:38)
--- NOTE | 2017-04-21 10:38 | PN ---
Progress Note - Progress Note Note: CRITICAL CARE MEDICINE Date: 04/21/17 Time: 900 SUBJECTIVE: Patient seen and examined. PHYSICAL EXAM: Vital Signs: Reviewed. Neurologic: awake, communicating HEENT: pupils equal. Sclera icteric. Trachea midline. Cardiovascular: S1 S2 Respiratory: dec at bases; no rales. Abdomen: Soft, less discomfort, +fluid, anasarca Extremities: warm. 3+ edema LABS: Reviewed. IMAGING: Reviewed. MEDICATIONS: Reviewed. ASSESSMENT: 52 F MSOF Acute oliguric renal failure - HRS vs TLS Mild metabolic encephalopathy, + hepatic encephalopathy Widely metastatic stage IV breast CA Lactic acidosis sec to subacute liver failure Hyponatremia Malnutrition mod degree Anasacra PLAN: Neurologic: communicating. encephalopathy improving slowly. amm slowly coming down. Cardiovascular: Perfusing well. keep rx as is. lasix for another few days. Respiratory: RA. Gastrointestinal: slowly better appetite. encourage. gerd suppression bid. Renal/Metabolic: renal fx with some Cr clearanace and fluid mobilization. as above Infectious Disease: no infective burden. Hematology: uric acid still benign post rasburicase. Endocrine: ssi. Musculoskeletal: oob, inc activity. Psych/Social: pain regimen better. Palliative consult Sunday would be beneficial. Supportive and preventative care as ordered. SUP: po VTE prophylaxis: heparin Phelan catheter given critical illness, monitoring needs for accurate assessment of JEANE and KDIGO criteria for critically ill patients and to avoid potential harms of urinary retention, skin breakdown/ulcers. Disposition: ICU, potential floor Code Status: Full, with dni currently Critical Care Time: 25min Sherin Lipscomb DO
[2017-04-21] MEDS: Docusate CAP* 100 MG PO SCH ×2 (11:00→19:49)
[2017-04-21] MEDS: Insulin LISPRO* 1 UNITS UNIT SUBCUT SCH ×2 (11:02)
[2017-04-21] MEDS ORDERED: Insulin LISPRO* 1 UNITS UNIT SUBCUT SCH (12:00)
[2017-04-21] MEDS: Potassium Chlor TAB* 20 MEQ TAB.ER PO SCH ×2 (15:06→21:50)
[2017-04-21] MEDS ORDERED: Oral Rinse (Biotene)(NF) 237 ML ORAL RINSE BTL MT PRN (16:53)
[2017-04-22] MEDS: Heparin VIAL(*) 5000 UNITS/ML VIAL (FIVE THOUSAND) SUBCUT SCH ×3 (05:41→21:55)
[2017-04-22 06:12] LABS: Albumin 2.9 g/dL (3.2-5.2); BUN/Creatinine Ratio 17.9 (8-20); Calcium 6.7 mg/dL (8.6-10.3); EGFR African American 22.4 (>60); EGFR Non-African American 17.4 (>60); Globulin 1.7 g/dL (2-4); Phosphorus 2.4 mg/dL (2.5-5.0); Potassium 3.5 mmol/L (3.5-5.0); Total Bilirubin 7.6 mg/dL (0.2-1.0); Total Protein 4.6 g/dL (6.4-8.9)
[2017-04-22] MEDS: Ondansetron INJ* 2 MG/ML VIAL IV PRN (08:19)
[2017-04-22] MEDS: Omeprazole CAP* 20 MG PO SCH ×2 (08:19→16:26)
[2017-04-22] MEDS: Docusate CAP* 100 MG PO SCH ×2 (08:41→20:55)
[2017-04-22] MEDS: Potassium Chlor TAB* 20 MEQ TAB.ER PO SCH ×3 (09:25→21:55)
[2017-04-22] MEDS: oxyCODONE SR TAB(*) 10 MG TAB.SR PO SCH ×2 (09:26→21:55)
[2017-04-22] MEDS: CMC:Midodrine (NF) 5 MG TAB PO SCH ×3 (09:26→21:54)
[2017-04-22] MEDS: OCTREOTIDE 100 MCG/ML SUBCUT SCH ×3 (09:27→21:54)
--- NOTE | 2017-04-22 10:51 | PN ---
Progress Note - Progress Note Note: CRITICAL CARE MEDICINE Date: 04/22/17 Time: 900 SUBJECTIVE: Patient seen and examined. PHYSICAL EXAM: Vital Signs: Reviewed. Neurologic: awake, communicating well HEENT: pupils equal. Sclera icteric. Trachea midline. Cardiovascular: S1 S2 Respiratory: dec Abdomen: Soft, +fluid, anasarca Extremities: warm. 3+ edema LABS: Reviewed. IMAGING: Reviewed. MEDICATIONS: Reviewed. ASSESSMENT: 52 F MSOF Acute renal failure - HRS vs TLS - improving Mild metabolic encephalopathy + hepatic encephalopathy - improving Widely metastatic stage IV breast CA Lactic acidosis on admission sec to subacute liver failure - resolved Hyponatremia on admission - resolved Malnutrition mod degree Anasacra PLAN: Neurologic: communicating. encephalopathy improving Cardiovascular: Perfusing well. lasix gtt for another day or so. add other diuretic adjuctives for the next 48hrs. remain on midodrine and octerotide for now and may look to keep midodrine and dc octeroitide soon. Respiratory: RA. Gastrointestinal: encourage po. gerd suppression bid. Renal/Metabolic: renal fx improved again and f/u post diuetric cocktail. Infectious Disease: no infective burden. Hematology: uric acid still benign post rasburicase. Endocrine: ssi not required. Musculoskeletal: oob, inc activity. Psych/Social: pain regimen maintained. Palliative consult Sunday. consider hospice. Supportive and preventative care as ordered. SUP: po VTE prophylaxis: heparin Phelan catheter given critical illness, monitoring needs for accurate assessment of JEANE and KDIGO criteria for critically ill patients and to avoid potential harms of urinary retention, skin breakdown/ulcers. Disposition: ICU today Code Status: Full, with dni currently Critical Care Time: 25min FChun Lipscomb DO
[2017-04-22] MEDS ORDERED: acetaZOLAMIDE VIAL* 250 MG in NS 0.9% 50 ML* 50 ML IVPB SCH (11:00)
[2017-04-22] MEDS: Chlorothiazide IV* 250 MG in NS 0.9% 50 ML* 50 ML IVPB SCH (12:22)
[2017-04-22] MEDS: acetaZOLAMIDE VIAL* 250 MG in NS 0.9% 50 ML* 50 ML IVPB SCH (21:54)
[2017-04-23 06:06] LABS: Hematocrit 33 % (35-47); Hemoglobin 10.5 g/dl (12.0-16.0); Mean Corpuscular HGB Conc 32 g/dl (31-36); Mean Corpuscular Hemoglobin 33 pg (27-31); Mean Corpuscular Volume 103 fL (80-97); Mean Platelet Volume 9 um3 (7.4-10.4); Red Blood Count 3.17 10^6/ul (4.0-5.4); Red Cell Distribution Width 26 % (10.5-15); White Blood Count 3.6 10^3/ul (3.5-10.8)
[2017-04-23 06:08] LABS: Comments Flag Yes
[2017-04-23 06:15] LABS: Albumin 2.6 g/dL (3.2-5.2); Calcium 6.9 mg/dL (8.6-10.3); Direct Bilirubin 4.8 mg/dL (0.03-0.18); EGFR African American 24.2 (>60); EGFR Non-African American 18.8 (>60); Globulin 1.8 g/dL (2-4); Indirect Bilirubin 2.8 mg/dL (0.3-1.0); Magnesium 1.7 mg/dL (1.9-2.7); Phosphorus 2.1 mg/dL (2.5-5.0); Total Bilirubin 7.6 mg/dL (0.2-1.0); Total Protein 4.4 g/dL (6.4-8.9)
[2017-04-23] MEDS: Heparin VIAL(*) 5000 UNITS/ML VIAL (FIVE THOUSAND) SUBCUT SCH ×3 (06:34→21:23)
[2017-04-23] MEDS: Omeprazole CAP* 20 MG PO SCH ×2 (07:58→16:27)
[2017-04-23] MEDS: oxyCODONE SR TAB(*) 10 MG TAB.SR PO SCH ×2 (08:38→21:11)
[2017-04-23] MEDS ORDERED: Potassium Chlor TAB* 20 MEQ TAB.ER PO ONE (09:16)
[2017-04-23] MEDS ORDERED: Magnesium Sulf 4 GM/100 ML IV* 4,000 MG/100 ML BAG IVPB ONE (09:30)
[2017-04-23] MEDS: acetaZOLAMIDE VIAL* 250 MG in NS 0.9% 50 ML* 50 ML IVPB SCH ×2 (09:40→21:07)
[2017-04-23] MEDS: Docusate CAP* 100 MG PO SCH ×2 (09:41→21:09)
[2017-04-23] MEDS ORDERED: Potassium Phosphate IV* 20 MMOLE in NS 0.9% 250 ML* 250 ML IVPB ONE (10:00)
[2017-04-23] MEDS: Chlorothiazide IV* 250 MG in NS 0.9% 50 ML* 50 ML IVPB SCH (10:12)
[2017-04-23] MEDS ORDERED: Phytonadione INJ (Adult)* 10 MG in NS 0.9% 50 ML* 50 ML IV ONE (10:24)
--- NOTE | 2017-04-23 11:00 | PN ---
Progress Note - Progress Note Note: CRITICAL CARE MEDICINE Date: 04/23/17 Time: 930 SUBJECTIVE: Patient seen and examined. PHYSICAL EXAM: Vital Signs: Reviewed. Neurologic: awake, communicating well HEENT: pupils equal. Sclera icteric. Trachea midline. Cardiovascular: S1 S2 Respiratory: dec Abdomen: Soft, +fluid, anasarca Extremities: warm. 3+ edema, maybe a touch better. LABS: Reviewed. IMAGING: Reviewed. MEDICATIONS: Reviewed. ASSESSMENT: 52 F MSOF Acute renal failure - HRS vs TLS - improving Mild metabolic encephalopathy + hepatic encephalopathy - improving Widely metastatic stage IV breast CA Lactic acidosis on admission sec to subacute liver failure - resolved Hyponatremia on admission - resolved Malnutrition mod degree Anasacra PLAN: Neurologic: communicating. encephalopathy still mild today Cardiovascular: Perfusing well. lasix gtt today with other diuretic adjuctives and then can attempt to change management consultant to intermittent to facilitate pushing her care forward. remain on midodrine and octerotide for today. Respiratory: RA. Gastrointestinal: encourage po. gerd suppression bid. lfts may have plateaued and await some improvement. lactulose continued. Renal/Metabolic: renal fx improving. Infectious Disease: no infective burden. Hematology: stable. Endocrine: stable. Musculoskeletal: oob, inc activity. Psych/Social: pain regimen maintained. Palliative consult for hospice. Supportive and preventative care as ordered. SUP: po VTE prophylaxis: heparin Phelan catheter given critical illness, monitoring needs for accurate assessment of JEANE and KDIGO criteria for critically ill patients and to avoid potential harms of urinary retention, skin breakdown/ulcers. Disposition: ICU today until plans better suited. Code Status: Full, with dni currently - palliative can address Critical Care Time: 25min Sherin Lipscomb DO
[2017-04-23] MEDS: Potassium Chlor TAB* 20 MEQ TAB.ER PO SCH ×3 (11:04→21:10)
[2017-04-23] MEDS: OCTREOTIDE 100 MCG/ML SUBCUT SCH ×3 (11:04→21:11)
[2017-04-23] MEDS: CMC:Midodrine (NF) 5 MG TAB PO SCH ×3 (11:04→21:09)
[2017-04-23] MEDS: Ondansetron INJ* 2 MG/ML VIAL IV PRN (15:38)
[2017-04-23] MEDS: KCL 20 MEQ/100 ML IVPREMIX* 20 MEQ/100 ML BAG IV SCH ×2 (16:27→18:30)
--- NOTE | 2017-04-23 16:31 | CONSULT ---
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 She was admitted here on 04/17/17 after 3 weeks of progressive fatigue, weakness , swelling and decreased urine output with a 25 pound weight gain. The concern was initially for hepatorenal syndrome due to hepatic impairment, with a grave prognosis, but the patient has actually recovered much of her renal function and is currently polyuric c/w ATN with an output of about 2 liters a day, and has lost 12 pounds in 2 days. She has been cared for by a Dr. Teresa in [place] who has been treating her with palliative chemotherapy and no cytotoxic agents at present. 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 The patient did speak with me but was clearly somewhat confused, with an ammonia level of 87 today, and she herself was aware that her responses were likely to be inaccurate and asked my to speak instead with her partner and HCP, Lucila who is an aid in our ICU. She denied pain or dyspnea at this time. she said her appetite was somewhat suppressed. She said she has no outstanding items on her "bucket list" and felt she has had a good life. She did say she hoped to extend her life if possible and that she was willing to experience discomfort in order to do so. Lab Values: Abnormal Lab Results 04/23/17 04/23/17 04/23/17 05:43 05:43 05:43 WBC 3.6 RBC 3.17 L Hgb 10.5 L Hct 33 L MCV 103 H MCH 33 H MCHC 32 RDW 26 H Plt Count 90 L MPV 9 INR (Anticoag Therapy) Sodium 143 Potassium 3.0 L Chloride 100 L Carbon Dioxide 33 H Anion Gap 10 BUN 48 H Creatinine 2.66 H Est GFR ( Amer) 24.2 Est GFR (Non-Af Amer) 18.8 BUN/Creatinine Ratio 18.0 Glucose 140 H Calcium 6.9 L Phosphorus 2.1 L Magnesium 1.7 L Total Bilirubin 7.60 H Direct Bilirubin 4.80 H Indirect Bilirubin 2.8 H AST 175 H ALT 36 Alkaline Phosphatase 450 H Ammonia 87 H Total Protein 4.4 L Albumin 2.6 L Globulin 1.8 L Albumin/Globulin Ratio 1.4 04/23/17 05:43 WBC RBC Hgb Hct MCV MCH MCHC RDW Plt Count MPV INR (Anticoag Therapy) 1.67 H Sodium Potassium Chloride Carbon Dioxide Anion Gap BUN Creatinine Est GFR ( Amer) Est GFR (Non-Af Amer) BUN/Creatinine Ratio Glucose Calcium Phosphorus Magnesium Total Bilirubin Direct Bilirubin Indirect Bilirubin AST ALT Alkaline Phosphatase Ammonia Total Protein Albumin Globulin Albumin/Globulin Ratio Laboratory Last Values WBC 3.6 10^3/ul (3.5-10.8) 04/23/17 05:43 RBC 3.17 10^6/ul (4.0-5.4) L 04/23/17 05:43 Hgb 10.5 g/dl (12.0-16.0) L 04/23/17 05:43 Hct 33 % (35-47) L 04/23/17 05:43 MCV 103 fL (80-97) H 04/23/17 05:43 MCH 33 pg (27-31) H 04/23/17 05:43 MCHC 32 g/dl (31-36) 04/23/17 05:43 RDW 26 % (10.5-15) H 04/23/17 05:43 Plt Count 90 10^3/ul (150-450) L 04/23/17 05:43 MPV 9 um3 (7.4-10.4) 04/23/17 05:43 Neut % (Auto) 90.4 % (38-83) H 04/20/17 05:00 Lymph % (Auto) 5.0 % (25-47) L 04/20/17 05:00 [place] % (Auto) 2.8 % (1-9) 04/20/17 05:00 Eos % (Auto) 1.0 % (0-6) 04/20/17 05:00 Baso % (Auto) 0.8 % (0-2) 04/20/17 05:00 Absolute Neuts (auto) 5.4 10^3/ul (1.5-7.7) 04/20/17 05:00 Absolute Lymphs (auto) 0.3 10^3/ul (1.0-4.8) L 04/20/17 05:00 Absolute Monos (auto) 0.2 10^3/ul (0-0.8) 04/20/17 05:00 Absolute Eos (auto) 0.1 10^3/ul (0-0.6) 04/20/17 05:00 Absolute Basos (auto) 0 10^3/ul (0-0.2) 04/20/17 05:00 Absolute Nucleated RBC 0 10^3/ul 04/20/17 05:00 Neutrophils % 94 % (38-83) H 04/17/17 18:35 Lymphocytes % 3 % (25-47) L 04/17/17 18:35 Monocytes % 3 % (0-13) 04/17/17 18:35 Nucleated RBC % 0.1 04/20/17 05:00 Normal RBC Morphology Normal (Normal) 04/17/17 18:35 INR (Anticoag Therapy) 1.67 (0.89-1.11) H 04/23/17 05:43 Sodium 143 mmol/L (133-145) 04/23/17 05:43 Potassium 3.0 mmol/L (3.5-5.0) L 04/23/17 05:43 Chloride 100 mmol/L (101-111) L 04/23/17 05:43 Carbon Dioxide 33 mmol/L (22-32) H 04/23/17 05:43 Anion Gap 10 mmol/L (2-11) 04/23/17 05:43 BUN 48 mg/dL (6-24) H 04/23/17 05:43 Creatinine 2.66 mg/dL (0.51-0.95) H 04/23/17 05:43 Est GFR ( Amer) 24.2 (>60) 04/23/17 05:43 Est GFR (Non-Af Amer) 18.8 (>60) 04/23/17 05:43 BUN/Creatinine Ratio 18.0 (8-20) 04/23/17 05:43 Glucose 140 mg/dL (70-100) H 04/23/17 05:43 POC Glucose (mg/dL) 109 mg/dL (74-106) H 04/18/17 12:15 Hemoglobin A1c 6.3 % (Less than 6.0) H 04/17/17 18:35 Lactic Acid 2.4 mmol/L (0.5-2.0) H* 04/19/17 06:14 Uric Acid < 1.5 mg/dL (2.3-6.6) L 04/21/17 05:30 Calcium 6.9 mg/dL (8.6-10.3) L 04/23/17 05:43 Ionized Calcium 3.42 mg/dL (4.65-5.28) L 04/17/17 21:30 Phosphorus 2.1 mg/dL (2.5-5.0) L 04/23/17 05:43 Magnesium 1.7 mg/dL (1.9-2.7) L 04/23/17 05:43 Total Bilirubin 7.60 mg/dL (0.2-1.0) H 04/23/17 05:43 Direct Bilirubin 4.80 mg/dL (0.03-0.18) H 04/23/17 05:43 Indirect Bilirubin 2.8 mg/dL (0.3-1.0) H 04/23/17 05:43 AST 175 U/L (13-39) H 04/23/17 05:43 ALT 36 U/L (7-52) 04/23/17 05:43 Alkaline Phosphatase 450 U/L (34-104) H 04/23/17 05:43 Ammonia 87 mol/L (16-53) H 04/23/17 05:43 Lactate Dehydrogenase 338 U/L (140-271) H 04/20/17 05:00 Total Creatine Kinase 627 U/L (10-223) H 04/17/17 18:35 Troponin I 0.08 ng/mL (<0.04) H* 04/18/17 05:45 C-Reactive Protein 60.65 mg/L (< 5.00) H 04/17/17 18:35 B-Natriuretic Peptide 119 pg/mL (-100) H 04/17/17 18:35 Total Protein 4.4 g/dL (6.4-8.9) L 04/23/17 05:43 Albumin 2.6 g/dL (3.2-5.2) L 04/23/17 05:43 Globulin 1.8 g/dL (2-4) L 04/23/17 05:43 Albumin/Globulin Ratio 1.4 (1-3) 04/23/17 05:43 Prealbumin 4 mg/dL (18-38) L 04/18/17 05:45 TSH 0.87 mcIU/mL (0.34-5.60) 04/17/17 18:35 Urine Color Gwen 04/18/17 08:14 Urine Appearance Cloudy 04/18/17 08:14 Urine pH 5.0 (5-9) 04/18/17 08:14 Ur Specific [place] 1.015 (1.010-1.030) 04/18/17 08:14 Urine Protein 1+(30 mg/dl) (Negative) H 04/18/17 08:14 Urine Ketones Negative (Negative) 04/18/17 08:14 Urine Blood Negative (Negative) 04/18/17 08:14 Urine Nitrate Negative (Negative) 04/18/17 08:14 Urine Bilirubin Negative (Negative) 04/18/17 08:14 Urine Urobilinogen Negative (Negative) 04/18/17 08:14 Ur Leukocyte Esterase Negative (Negative) 04/18/17 08:14 Urine WBC (Auto) 1+(6-10/hpf) (Absent) H 04/18/17 08:14 Urine RBC (Auto) 2+(6-10/hpf) (Absent) H 04/18/17 08:14 Ur Squamous Epith Cells Present (Absent) H 04/18/17 08:14 Urine Bacteria Absent (Absent) 04/18/17 08:14 Hyaline Casts Present (Absent) H 04/18/17 08:14 Ur Random Creatinine 120.82 mg/dL 04/19/17 12:05 Ur Random Sodium < 18 mmol/L 04/19/17 12:05 Renal Sodium Excretion 0.35 % 04/19/17 12:05 Urine Glucose Negative (Negative) 04/18/17 08:14 Urine Ascorbic Acid * (Negative) H 04/18/17 08:14 - Objective Active Medications: Acetaminophen (Tylenol Tab*) 650 mg PO Q6H PRN PRN Reason: FEVER/PAIN Last Admin: 04/19/17 07:03 Dose: 650 mg Docusate Sodium (Colace Cap*) 200 mg PO BID COUNT INCLUDES THE [facility] Last Admin: 04/23/17 09:41 Dose: Not Given Heparin Sodium (Porcine) (Heparin Vial(*)) 5,000 units SUBCUT Q8HR COUNT INCLUDES THE [facility] Last Admin: 04/23/17 14:18 Dose: 5,000 units Hydromorphone HCl (Dilaudid Iv*) 0.5 mg IV Q2H PRN PRN Reason: PAIN Last Admin: 04/19/17 08:47 Dose: 0.5 mg Furosemide 100 mg/ Sodium (Chloride) 100 mls @ 15 mls/hr IV .(as INITIAL RATE) JAKUB PRN Reason: 15 MG/HR Last Admin: 04/23/17 07:58 Dose: 15 mls/hr Acetazolamide Sodium 250 mg/ (Sodium Chloride) 50 mls @ 100 mls/hr IVPB Q12HR COUNT INCLUDES THE [facility] Stop: 04/23/17 21:29 Last Admin: 04/23/17 09:40 Dose: 100 mls/hr Potassium Chloride (Potassium Chloride 20 Meq/100 Ml Ivpremix*) 20 meq in 100 mls @ 50 mls/hr IV Q2H COUNT INCLUDES THE [facility] Stop: 04/23/17 20:59 Lactulose (Lactulose*) 30 ml PO TID COUNT INCLUDES THE [facility] Last Admin: 04/23/17 14:18 Dose: 30 ml Lorazepam (Ativan Inj*) 0.5 mg IV BEDTIME PRN PRN Reason: SLEEP Melatonin (Melatonin (Nf)) 3 mg PO BEDTIME PRN; Protocol PRN Reason: Sleep Midodrine (Midodrine (Nf)) 10 mg PO TID COUNT INCLUDES THE [facility] PRN Reason: Protocol Last Admin: 04/23/17 11:04 Dose: 10 mg Multi-Ingredient Mouthwash/Gargle (Magic M W2 David/Maal/Nyst/Lido*) 5 ml SWISH SWAL QID PRN PRN Reason: throat discomfort Last Admin: 04/18/17 16:30 Dose: 5 ml Multi-Ingredient Mouthwash/Gargle (Biotene Dry Mouth Oral Rinse(Nf)) 5 ml MT QID PRN PRN Reason: DRYMOUTH Last Admin: 04/21/17 17:10 Dose: 5 ml Octreotide Acetate (Octreotide Syr (Nf)) 100 mcg SUBCUT TID COUNT INCLUDES THE [facility] Last Admin: 04/23/17 14:18 Dose: 100 mcg Omeprazole (Prilosec Cap*) 20 mg PO BID@0730,1630 COUNT INCLUDES THE [facility] Last Admin: 04/23/17 07:58 Dose: 20 mg Ondansetron HCl (Zofran Inj*) 4 mg IV Q6H PRN PRN Reason: NAUSEA Last Admin: 04/23/17 15:38 Dose: 4 mg Oxycodone HCl (Roxycodone Tab*) 5 mg PO Q4H PRN PRN Reason: PAIN Oxycodone HCl (Oxycontin(*)) 10 mg PO BID COUNT INCLUDES THE [facility] Last Admin: 04/23/17 08:38 Dose: 10 mg Potassium Chloride (Klor Con Er Tab*) 20 meq PO TID COUNT INCLUDES THE [facility] Last Admin: 04/23/17 14:12 Dose: Not Given Vital Signs: Vital Signs: Temp Pulse Resp BP Pulse Ox 97.1 F 101 14 104/62 93 04/23/17 15:00 04/23/17 15:00 04/23/17 16:00 04/23/17 15:00 04/23/17 15:00 Patient Weight: Weight 162 lb 0.636 oz Intake and Output: Intake & Output 04/21/17 04/22/17 04/23/17 04/24/17 06:59 06:59 06:59 06:59 Intake Total 249 757 6057 703 Output Total 3100 2650 3850 850 Balance -2229 -2238 -2286 -147 Weight 174 lb 6.17 oz 168 lb 10.458 oz 162 lb 0.636 oz Intake: IV Fluids 100 55 NS (0.9%) 100 55 IVPB 115 260 NS (0.9%) 115 260 Medicated IV 381 362 349 88 Lasix 381 362 349 88 Oral 049 09 2759 300 Output: Urine 200 Phelan 2900 2650 3850 850 Other: Date of Last Bowel 04/20/17 04/22/17 Movement # Bowel Movements 1 1 1 Estimated Stool Amount Medium Large Small ADLs: Meal Record Start: 04/17/17 22: 54 Freq: 09,13,18 Status: Active Created 04/17/17 22:54 System (Rec: 04/17/17 22:54 System ICU-C07) Document 04/18/17 09:00 [id number] (Rec: 04/18/17 09:08 [id number] ICU-C07) Document 04/18/17 13:00 [id number] (Rec: 04/18/17 13:47 [id number] ICU-C14) Document 04/18/17 18:46 [id number] (Rec: 04/18/17 18:46 [id number] ICU-C07) Document 04/19/17 09:00 [id number] (Rec: 04/19/17 09:55 [id number] ICU-C20) Document 04/19/17 13:00 [id number] (Rec: 04/19/17 14:05 [id number] ICU-C07) Document 04/19/17 18:00 [id number] (Rec: 04/19/17 18:43 [id number] ICU-C07) Document 04/20/17 09:00 [id number] (Rec: 04/20/17 11:10 [id number] ICU-C08) Document 04/20/17 13:00 [id number] (Rec: 04/20/17 13:54 [id number] ICU-C08) Document 04/20/17 19:00 [id number] (Rec: 04/20/17 23:00 [id number] ICU-C07) Document 04/21/17 09:00 IOJ3224 (Rec: 04/21/17 12:15 [id number] ICU-C19) Document 04/21/17 13:00 UWQ2800 (Rec: 04/21/17 15:52 [id number] ICU-C08) Document 04/21/17 19:49 LHZ4801 (Rec: 04/21/17 19:49 [id number] ICU-C07) Document 04/22/17 09:00 [id number] (Rec: 04/22/17 10:17 EUR8949 ICU-M11) Document 04/22/17 13:00 IYC9001 (Rec: 04/22/17 14:30 [id number] ICU-C07) Document 04/22/17 18:00 UPM4925 (Rec: 04/22/17 23:58 [id number] ICU-C07) Document 04/23/17 09:00 IKY4247 (Rec: 04/23/17 10:11 [id number] ICU-C07) Document 04/23/17 13:00 [id number] (Rec: 04/23/17 14:11 [id number] ICU-C07) Intake and Output Start: 04/17/17 18: 09 Freq: Status: Active Created 04/17/17 18:09 System (Rec: 04/17/17 18:09 System [id number]) Intake and Output Start: 04/17/17 22: 54 Freq: 06,14,22 Status: Active Created 04/17/17 22:54 System (Rec: 04/17/17 22:54 System ICU-C07) Document 04/18/17 02:00 [id number] (Rec: 04/18/17 02:03 [id number] ICU-C07) Document 04/18/17 06:00 ZVK7152 (Rec: 04/18/17 06:08 [id number] ICU-C07) Document 04/18/17 08:40 [id number] (Rec: 04/18/17 08:40 [id number] ICU-C07) Document 04/18/17 14:00 [id number] (Rec: 04/18/17 14:44 [id number] ICU-C07) Document 04/18/17 14:44 IZS7390 (Rec: 04/18/17 14:44 [id number] ICU-C07) Document 04/18/17 22:00 [id number] (Rec: 04/18/17 22:16 [id number] ICU-C07) Document 04/19/17 05:46 VYX3910 (Rec: 04/19/17 05:46 [id number] ICU-C19) Document 04/19/17 12:26 EBR8627 (Rec: 04/19/17 12:27 [id number] ICU-C07) Document 04/19/17 14:00 [id number] (Rec: 04/19/17 14:59 EFR9901 ICU-C07) Document 04/19/17 21:18 NZU8701 (Rec: 04/19/17 21:18 FVK0622 ICU-C25) Document 04/20/17 06:00 YPH6158 (Rec: 04/20/17 06:14 RZF6171 ICU-C07) Document 04/20/17 06:24 RJR2699 (Rec: 04/20/17 06:24 [id number] ICU-C07) Document 04/20/17 12:20 ZMB9038 (Rec: 04/20/17 12:20 [id number] ICU-C19) Document 04/20/17 13:44 [id number] (Rec: 04/20/17 13:45 UNV9521 ICU-M05) Document 04/20/17 13:54 IEN5088 (Rec: 04/20/17 13:54 [id number] ICU-C08) Document 04/20/17 22:00 [id number] (Rec: 04/20/17 23:10 [id number] ICU-C07) Document 04/21/17 05:50 UDB0098 (Rec: 04/21/17 05:51 RJN6617 ICU-C07) Document 04/21/17 13:59 PJA4155 (Rec: 04/21/17 13:59 UOL9823 ICU-C20) Document 04/21/17 22:00 TSL8040 (Rec: 04/21/17 22:51 [id number] ICU-C14) Document 04/22/17 06:00 VPR5709 (Rec: 04/22/17 06:15 [id number] ICU-C14) Document 04/22/17 14:57 CRI6103 (Rec: 04/22/17 14:58 [id number] ICU-C07) Document 04/22/17 22:00 TJG1973 (Rec: 04/22/17 22:53 NXC2101 ICU-M05) Document 04/23/17 05:53 [id number] (Rec: 04/23/17 05:54 [id number] ICU-C07) Document 04/23/17 14:00 [id number] (Rec: 04/23/17 14:12 [id number] ICU-C07) General Impression: Pleasant, edematous woman with alopecia, NAD. Head: Symmetrical Eyes: - - mildly icteric sclerae Ears/Nose/Mouth/Throat: Clear Oropharnyx Neck: Trachea Midline Cardiovascular: RRR Respiratory: Symmetrical Chest Expansion and Respiratory Effort, Clear to Auscultation Abdominal: - - Abdomen distended with ascites and hepatomegaly, nontender. Extremities: No Clubbing, Cyanosis, - - 3+ pitting edema Neurological: - - alert, responsive, confused. - Assessment Assessment: I had an extensive discussion with the patient's partner and HCP, uLcila. She told me Dr. Teresa in [place] is not planning any further chemo or other life- prolonging therapy. She amended the MOLST directives with me on a new form,so the patient is now DNR/DNI/DNH. She elected hospice services at home in [place]. She will need some DME's. She should have a same-day sign on at the time of discharge. Her primary disgnosis for hospice should be metastatic breast cancer and her secondary hepatic failure. Thanks for the consult opportunity. - Plan Consult Plan (MU): Hospice - Time On Unit Date of Evaluation: 04/23/17 Hospice Consult Time in: 16:00 Hospice Consult Time Out: 17:25 Hospice Consult Time Total: 85 > 50% of Time Spend In Counseling or Coordinating Care: Yes
--- NOTE | 2017-04-24 01:05 | PN ---
PROGRESS NOTE: DATE OF VISIT/DICTATION: 04/23/17 - ROOM #ICU-11 HISTORY: Ms. Pretty feels somewhat weaker today than yesterday. She had a very difficult time getting into and out of bed. She is breathing alright. She is eating if not well. She has no nausea or vomiting. Her blood pressure is 94/60 with a pulse of 80. She still has diminished breath sounds to the bases. The heart reveals a regular rhythm without murmurs. Her edema is down significantly. Her urine output is excellent and she is in almost 2.5 L negative fluid balance. White count is 3.6 with a hemoglobin of 10.5. She is a little hypokalemic at 3. Her creatinine is falling nicely even while she is being diuresed. At the present time, I think nutrition and re-ambulation are significant goals of therapy. I encouraged her oral intake in order to repair the hypokalemia. IMPRESSION: 1. Acute renal failure, now improving. 2. Hypokalemia. I did discuss the case with Dr. Lipscomb. [id number]/[id number] #: [id number] ISAAK
[2017-04-24] MEDS: Heparin VIAL(*) 5000 UNITS/ML VIAL (FIVE THOUSAND) SUBCUT SCH (06:30)
[2017-04-24 06:33] LABS: Hematocrit 34 % (35-47); Hemoglobin 10.9 g/dl (12.0-16.0); Mean Corpuscular HGB Conc 32 g/dl (31-36); Mean Corpuscular Hemoglobin 34 pg (27-31); Mean Corpuscular Volume 104 fL (80-97); Mean Platelet Volume 9 um3 (7.4-10.4); Red Blood Count 3.23 10^6/ul (4.0-5.4); Red Cell Distribution Width 27 % (10.5-15); White Blood Count 3.9 10^3/ul (3.5-10.8)
[2017-04-24 06:43] LABS: Comments Flag Yes
[2017-04-24 06:46] LABS: Albumin 2.7 g/dL (3.2-5.2); BUN/Creatinine Ratio 17.4 (8-20); Calcium 7.3 mg/dL (8.6-10.3); EGFR African American 24.4 (>60); Globulin 1.9 g/dL (2-4); Magnesium 2.6 mg/dL (1.9-2.7); Phosphorus 2.8 mg/dL (2.5-5.0); Potassium 3.8 mmol/L (3.5-5.0); Total Bilirubin 8.5 mg/dL (0.2-1.0); Total Protein 4.6 g/dL (6.4-8.9)
[2017-04-24] MEDS: oxyCODONE SR TAB(*) 10 MG TAB.SR PO SCH (08:36)
[2017-04-24] MEDS: OCTREOTIDE 100 MCG/ML SUBCUT SCH (08:36)
[2017-04-24] MEDS: Omeprazole CAP* 20 MG PO SCH (08:36)
[2017-04-24] MEDS: Potassium Chlor TAB* 20 MEQ TAB.ER PO SCH (08:37)
[2017-04-24] MEDS: CMC:Midodrine (NF) 5 MG TAB PO SCH (08:37)
[2017-04-24] MEDS ORDERED: Furosemide TAB* 40 MG PO SCH (10:00)
[2017-04-24] MEDS: Docusate CAP* 100 MG PO SCH (10:08)
--- NOTE | 2017-04-24 11:08 | PN ---
Progress Note - Progress Note Note: CRITICAL CARE MEDICINE Date: 04/24/17 Time: 930 SUBJECTIVE: Patient seen and examined. at bedside. PHYSICAL EXAM: more lethargic and encephalopathic Vital Signs: Reviewed. Neurologic: awake, less communication. HEENT: Sclera icteric. Trachea midline. Cardiovascular: S1 S2 Respiratory: dec bs but no wob Abdomen: Soft, +fluid, anasarca Extremities: warm. 3+ edema. LABS: Reviewed. IMAGING: Reviewed. MEDICATIONS: Reviewed. ASSESSMENT: 52 F MSOF Acute renal failure - HRS vs TLS - improving Mild metabolic encephalopathy + hepatic encephalopathy - improving Widely metastatic stage IV breast CA Lactic acidosis on admission sec to subacute liver failure - resolved Hyponatremia on admission - resolved Malnutrition mod degree Anasacra PLAN: Neurologic: communication failing. worsening encephalopathy; multifactorial but mainly hepatic at this point. oxy as rx Cardiovascular: Perfusing less. Lasix gtt off. utilize po lasix for comfort. can stop midodrine and octerotide today due to lack of benefit. Respiratory: RA. Gastrointestinal: encourage po but lacking. liver still in failing state worsening despite improved fluid and renal dynamics. gerd suppressionmay lactulose continued prn to avoid constipation with narcs and alleviate toxic ammonia. Renal/Metabolic: renal fx maybe plateauing Infectious Disease: no infective burden. Hematology: stable. Endocrine: stable. cortisol likely ailing Musculoskeletal: oob, inc activity as able but faltering Psych/Social: pain regimen. Palliative set up for dispo to hospice today. this is her best medicine today. Supportive and preventative care as ordered. Disposition: dc to home hospice. Code Status: DNR/DNI/DRH Critical Care Time: 30min Sherin Lipscomb DO
--- NOTE | 2017-04-24 11:56 | DS ---
CRITICAL CARE MEDICINE DISCHARGE SUMMARY ADMISSION DATE: 04/17/2017 ICU ADMISSION DATE: 04/17/2017 ICU DISCHARGE DATE: 04/24/2017 PRIMARY CARE PROVIDER: Dr. Buckner. REFERRING PHYSICIAN: Dr. Lui. DIAGNOSIS: 1. Multiple system organ failure. 2. Mild - moderate hepatic and metabolic encephalopathy. 3. Subacute liver failure. 4. Acute renal failure. 5. Tumor lysis syndrome. 6. Hepatorenal syndrome. 7. Moderate malnutrition. 8. Widely metastatic inflammatory breast carcinoma. 9. Lactic acidosis on admission. MEDICATIONS AT DISCHARGE: 1. Oxycondone 10mg by mouth twice daily. 2. Roxicodone 5mg po every 4 hours as needed for pain. 3. Lactulose 15ml (10grams) by mouth every 8 hours as needed for constipation. 4. Lasix 80mg by mouth twice daily as needed for fluid retention. ALLERGIES: Penicillins. HOSPITAL COURSE: 52 year old female with widely metastatic cancer presenting with acute renal failure, lactic acidosis, fluid retention, weight gain, worsening liver function and elevated uric acid level. CT scan. Nephrology and critical care consults. Treated aggressively at first to with fluid resuscitation and rasburicase. Then lasix challenge followed by drip with improved urine output with contaminate concerns and treatment for hepatorenal syndrome. Renal function improved some. Morphine for comfort and attempts to maintain po intake and ability to thrive. However condition is still weak, liver failure still evident, and they opt for home hospice which we are proceeding with. Arrangements being made today. DISPOSITION: Home with Hospice. DIET: Regular. ACTIVITY: At liberty. CODE STATUS: Do not resuscitate. Do not intubate. Do not return to hospital. SPECIAL INSTRUCTIONS: Per Hospice recommendations. FOLLOW UP: With hospice service Sherin Lipscomb DO
[2017-04-24 12:05] VITALS: BP 103/68
== END 2017-04-24 13:15 | disposition hospice, home (50) | DRG 279 ==
LOC: ED 17:05 → ICU 21:47
PROVIDERS: ADMIT Hospitalist; ATTEND Internal Medicine Critical Care Medicine
DX: K76.7 Hepatorenal syndrome (principal); G93.41 Metabolic encephalopathy; E88.3 Tumor lysis syndrome; E72.12 Methylenetetrahydrofolate reductase deficiency; E44.0 Moderate protein-calorie malnutrition; C78.7 Secondary malignant neoplasm of liver and intrahepatic bile duct; C79.31 Secondary malignant neoplasm of brain; E87.2 Acidosis; C78.00 Secondary malignant neoplasm of unspecified lung; K72.00 Acute and subacute hepatic failure without coma; C79.51 Secondary malignant neoplasm of bone; N17.9 Acute kidney failure, unspecified; E87.1 Hypo-osmolality and hyponatremia; D68.59 Other primary thrombophilia; C50.919 Malignant neoplasm of unspecified site of unspecified female breast; E11.9 Type 2 diabetes mellitus without complications; H54.8 Legal blindness, as defined in USA; I10 Essential (primary) hypertension; E78.5 Hyperlipidemia, unspecified; K21.9 Gastro-esophageal reflux disease without esophagitis; E87.6 Hypokalemia; Z66 Do not resuscitate; L65.9 Nonscarring hair loss, unspecified; Z51.5 Encounter for palliative care; Z92.21 Personal history of antineoplastic chemotherapy; Z92.3 Personal history of irradiation; Z88.0 Allergy status to penicillin; Z90.12 Acquired absence of left breast and nipple; Z80.3 Family history of malignant neoplasm of breast; Z83.2 Family history of diseases of the blood and blood-forming organs and certain disorders involving the immune mechanism; Z82.49 Family history of ischemic heart disease and other diseases of the circulatory system; Z68.26 Body mass index [BMI] 26.0-26.9, adult
CPT/HCPCS: 36415; 71020; 74176; 80048; 80053; 80076; 81003; 81015; 82140; 82330; 82550; 82570; 83036; 83605; 83615; 83735; 83880; 84100; 84134; 84300; 84443; 84484; 84550; 85025; 85027; 85610; 86140; 87641; 93005; 94760; A9270-GY; J1120; J1170; J1642; J1644; J1940; J2405; J3430; J3480; P9045; P9047